=== PATIENT | female | born 1980 ===

== ENCOUNTER 2018-10-25 13:25 | Emergency (ER) | payer MEDICAID ==
[2018-10-25 13:56] VITALS: RESP 20; O2SAT 98
--- NOTE | 2018-10-25 15:17 | C.PDOC ---
History Of Present Illness 38 y/o female pt who is 6 weeks presents to the ER for repeat of blood work. Pt reports she had abdominal pain x2 days ago and was sent to [facility] [place] by primary. Pt results of visit: Beta HC,000; UA: (-) for infection; US: showed IUP but no heart rate. Abdominal pain resolved and no active bleeding but pt wants a repeat of HCG labs to confirm ability of . Time Seen by Provider: 10/25/18 13:33 Chief Complaint (Nursing): Female Genitourinary History Per: Patient History/Exam Limitations: no limitations Past Medical History Reviewed: Historical Data, Nursing Documentation, Vital Signs Vital Signs: Last Vital Signs Temp 98.7 F 10/25/18 13:55 Pulse 70 10/25/18 13:55 Resp 20 10/25/18 13:55 BP 148/74 10/25/18 13:55 Pulse Ox 98 10/25/18 13:55 Family History: States: No Known Family Hx - Social History Hx Alcohol Use: No Hx Substance Use: No - Immunization History Hx Tetanus Toxoid Vaccination: No Hx Influenza Vaccination: No Hx Pneumococcal Vaccination: No Review Of Systems Except As Marked, All Systems Reviewed And Found Negative. Constitutional: Negative for: Weakness Gastrointestinal: Negative for: Abdominal Pain Physical Exam - Physical Exam Additional Physical Exam Comments: Constitutional: No acute distress. Head: Normocephalic. Atraumatic. Eyes: PERRL. ENT: Moist mucous membranes. Neck: Supple. Cardiovascular: Regular rate. Radial pulse 2+ bilaterally. Chest: No tenderness. Respiratory: Clear to auscultation bilaterally. GI: Soft. Nontender. Nondistended. Back: No CVA tenderness. Musculoskeletal: No tenderness or swelling of extremities. Skin: No rash. Neurologic: Alert, no focal deficit. ED Course And Treatment O2 Sat by Pulse Oximetry: 98 (RA) Pulse Ox Interpretation: Normal Medical Decision Making Medical Decision Making: Plan: -- Beta-HCG decreased. Copy given to patient. Disposition - Disposition Disposition: HOME/ ROUTINE Disposition Time: 15:15 Condition: STABLE Instructions: Miscarriage Forms: zanda (Persian) - Clinical Impression Clinical Impression: - Scribe Statement The provider has reviewed the documentation as recorded by the Scribe Kori Do Provider Attestation: All medical record entries made by the Scribe were at my direction and personally dictated by me. I have reviewed the chart and agree that the record accurately reflects my personal performance of the history, physical exam, medical decision making, and the department course for this patient. I have also personally directed, reviewed, and agree with the discharge instructions and disposition.
[2018-10-25 15:29] VITALS: BP 124/84; PULSE 66; TEMP 99.2
== END 2018-10-25 15:37 | disposition home or self-care (01) ==
LOC: MERGE 13:25 → C.ER 13:25
DX: O03.9 Complete or unspecified spontaneous abortion without complication (principal)